=== PATIENT | male | born 1950 | race Caucasian/White ===

== ENCOUNTER → 2021-10-20 | Outpatient (CLI) | payer MEDICARE | LOC: HEART CORB 09:45 | DX: I10 Essential (primary) hypertension (principal); R07.2 Precordial pain; R06.02 Shortness of breath; I20.1 Angina pectoris with documented spasm; E78.5 Hyperlipidemia, unspecified; R42 Dizziness and giddiness | CPT/HCPCS: 78452; A9502; J2785 ==

== ENCOUNTER → 2021-11-17 | Outpatient (CLI) | payer MEDICARE | LOC: HEART CORB 08:26 | DX: I25.5 Ischemic cardiomyopathy (principal); R07.2 Precordial pain; R06.02 Shortness of breath; I08.3 Combined rheumatic disorders of mitral, aortic and tricuspid valves | CPT/HCPCS: 93306 ==